=== PATIENT | female | born 1995 | race Two or more races ===

== ENCOUNTER 2017-10-08 23:53 | Emergency (ER) | payer BC ==
[~2017-10-08] VITALS: Ht 160 cm; Wt 72.6 kg
[2017-10-09 00:08] VITALS: BP 120/76
[2017-10-09] MEDS ORDERED: HYDROcodone-ACET 10/325MG TAB PO ONE (02:45)
[2017-10-09] MEDS ORDERED: ONDANSETRON ODT 4 MG TAB PO ONE (02:45)
[2017-10-09] MEDS ORDERED: HYDROcodone-ACET 10/325MG TAB ONE ×2 (02:57→03:00)
== END 2017-10-09 03:10 | disposition home or self-care (01) ==
LOC: ER 23:53
DX: S13.4XXA Sprain of ligaments of cervical spine, initial encounter (principal); V49.3XXA Car occupant (driver) (passenger) injured in unspecified nontraffic accident, initial encounter; Y93.89 Activity, other specified; Y99.8 Other external cause status; Y92.89 Other specified places as the place of occurrence of the external cause
CPT/HCPCS: 70450; 72125; 99284; Q0162

== ENCOUNTER 2021-08-29 09:14 | Emergency (ER) | payer BC ==
[~2021-08-29] VITALS: Ht 160 cm; Wt 86.2 kg
[2021-08-29 11:42] VITALS: BP 141/60
[2021-08-29] MEDS ORDERED: AZIT500T66 PO (11:56)
[2021-08-29] MEDS ORDERED: PROM1SOL4 PO (11:56)
== END 2021-08-29 12:10 | disposition home or self-care (01) ==
LOC: ER 09:14
DX: J03.90 Acute tonsillitis, unspecified (principal)

== ENCOUNTER 2022-04-26 04:19 | Emergency (ER) | payer BC, OTHER ==
[~2022-04-26] VITALS: Ht 160 cm; Wt 81.0 kg
[2022-04-26 04:19] VITALS: BP 126/72
[~2022-04-26 04:19] MED LIST: AZIT500T66 PO; PROM1SOL4 PO
[2022-04-26] MEDS ORDERED: CIP03OS RIGHTEYE (07:14)
== END 2022-04-26 07:32 | disposition home or self-care (01) ==
LOC: ER 04:19
DX: H10.31 Unspecified acute conjunctivitis, right eye (principal)

== ENCOUNTER 2023-12-24 13:02 | Emergency (ER) | payer OTHER ==
[~2023-12-24] VITALS: Ht 160 cm; Wt 90.4 kg
[~2023-12-24 13:02] MED LIST changes: +CIP03OS RIGHTEYE
[2023-12-24 14:07] LABS: Urine Bacteria None Seen /hpf (None Seen)
[2023-12-24 14:28] LABS: Urine Blood Negative /uL (Negative); Urine Clarity Clear (Clear); Urine Color Yellow (Yellow); Urine Mucus FEW (None Seen); Urine Protein, UAD Negative (Negative); Urine Specific Gravity 1.021 (1.001-1.035); Urine Urobilinogen Normal (Negative); Urine WBC 1 /hpf (0 - 5)
[2023-12-24 16:10] VITALS: BP 131/71; TEMP 98
[2023-12-24 16:13] VITALS: PULSE 71; RESP 19; O2SAT 98
== END 2023-12-24 16:20 | disposition home or self-care (01) ==
LOC: ER 13:02
DX: F43.0 Acute stress reaction (principal); F41.9 Anxiety disorder, unspecified; Z79.899 Other long term (current) drug therapy
CPT/HCPCS: 70450; 81001; 81025